=== PATIENT | female | born 1955 | race Caucasian/White ===

== ENCOUNTER 2023-02-27 13:32 | Emergency (ER) | payer MEDICARE, OTHER ==
[~2023-02-27] VITALS: Ht 167.6 cm; Wt 63.5 kg
[2023-02-27 13:55] VITALS: BP 129/56
[2023-02-27] MEDS ORDERED: ULTRA-LIGHT RO1 EACH MC (15:03)
== END 2023-02-27 15:21 | disposition home or self-care (01) ==
LOC: ER 13:32
DX: S92.321A Displaced fracture of second metatarsal bone, right foot, initial encounter for closed fracture (principal); X50.1XXA Overexertion from prolonged static or awkward postures, initial encounter; W55.32XA Struck by other hoof stock, initial encounter; E10.9 Type 1 diabetes mellitus without complications
CPT/HCPCS: 29515; 73610; 73630; 99283-25